=== PATIENT | male | born 1955 | race African-American/Black ===

== ENCOUNTER 2021-11-02 14:57 | Emergency (ER) | payer OTHER ==
[~2021-11-02] VITALS: Ht 180.3 cm; Wt 94.8 kg
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
[2021-11-02] MEDS ORDERED: HYDROCODONE/APAP 5/325MG TABLET ONE (16:47)
[2021-11-02] MEDS ORDERED: CYCLOBENZAPRINE 10 MG TABLET ONE (16:47)
[2021-11-02] MEDS ORDERED: HYDROCODONE/APAP 5/325MG TABLET PO ONE (17:00)
[2021-11-02] MEDS ORDERED: CYCLOBENZAPRINE 10 MG TABLET PO ONE (17:00)
[2021-11-02] MEDS ORDERED: IBUP-1955 PO (17:50)
[2021-11-02] MEDS ORDERED: HYDR-4209 PO (17:50)
[2021-11-02] MEDS ORDERED: CYCL5TAB PO (17:50)
--- NOTE | 2021-11-02 18:02 | NUR ---
Patient discharged to home in stable condition. Written and verbal after care instructions given. Patient verbalizes understanding of instruction.
[2021-11-02 18:05] VITALS: BP 134/65
== END 2021-11-02 18:36 | disposition home or self-care (01) ==
LOC: ER 15:51
DX: M54.50 Low back pain, unspecified (principal); Z88.0 Allergy status to penicillin; W18.39XA Other fall on same level, initial encounter; Y93.89 Activity, other specified; Y92.89 Other specified places as the place of occurrence of the external cause; Y99.8 Other external cause status